=== PATIENT | male | born 1970 | race Caucasian/White ===

== ENCOUNTER 2022-02-07 12:50 | Inpatient (IN) ==
[2022-02-07] MEDS ORDERED: NS 0.9% 1000 ml BAG 1,000 ML IV ONE (14:41)
[2022-02-07 15:22] LABS: ABS Eosinophils 0.2 10^3/ul (0-0.6); ABS Lymphocytes 1.2 10^3/ul (1.0-4.8); ABS Monocytes 0.9 10^3/ul (0-0.8); ABS Neutrophils 3.2 10^3/ul (1.5-7.7); Eosinophil % 2.7 %; Hematocrit 21 % (42-52); Hemoglobin 6.9 g/dL (14.0-18.0); Mean Corpuscular HGB Conc 33 g/dL (31-36); Mean Corpuscular Hemoglobin 33 pg (27-31); Mean Corpuscular Volume 99 fL (80-94); Mean Platelet Volume 8.7 fL (7.4-10.4); Nucleated Red Blood Cells % 0.2; Platelet Count 215 10^3/uL (150-450); Red Blood Count 2.12 10^6 /uL (4.18-5.48); Red Cell Distribution Width 14 % (10-15); White Blood Count 5.5 10^3/uL (3.5-10.8)
[2022-02-07 15:29] LABS: INR 1.15 (0.86-1.15)
[2022-02-07] MEDS ORDERED: Pantoprazole 80 mg in NS BAG 80 MG/250 ML BAG IV ONE (15:37)
[2022-02-07] MEDS ORDERED: Pantoprazole VIAL 40 MG VIAL IV ONE (15:49)
[2022-02-07] MEDS ORDERED: Pantoprazole 80 mg in NS BAG 80 MG/250 ML BAG IV SCH (16:00)
[2022-02-07 16:23] LABS: Albumin 3.6 g/dL (3.2-5.2); Albumin/Globulin Ratio 1.8 (1-3); Calcium 8.3 mg/dL (8.6-10.3); Total Bilirubin 0.4 mg/dL (0.2-1.0); Total Protein 5.6 g/dL (6.4-8.9); eGFR CKD-EPI 107.1 (>60)
[2022-02-07] MEDS ORDERED: Lorazepam PYXIS KEY PRN (17:00)
[2022-02-07] MEDS ORDERED: NS 0.9% 1000 ml BAG 1,000 ML IV SCH (17:00)
[2022-02-07] MEDS ORDERED: LORazepam 2 mg VIAL 1 ml IV PUSH PRN (17:00)
[2022-02-07] MEDS ORDERED: Ondansetron 4 mg VIAL 2 MG/ML 2 ml VIAL IV PRN (17:02)
[2022-02-07] MEDS: Pantoprazole 80 mg IN NS 80 MG/250 ML BAG IV SCH (17:05)
[2022-02-07 19:55] LABS: High Sensitivity Troponin 3 Hr 4 pg/mL (<20)
[2022-02-08] MEDS: Pantoprazole 80 mg IN NS 80 MG/250 ML BAG IV SCH ×3 (02:52→23:42)
[2022-02-08 04:39] LABS: Hematocrit 23 % (42-52); Hemoglobin 7.5 g/dL (14.0-18.0); Hemoglobin 7.6 g/dL (14.0-18.0); Mean Corpuscular HGB Conc 33 g/dL (31-36); Mean Corpuscular Hemoglobin 31 pg (27-31); Mean Corpuscular Volume 93 fL (80-94); Mean Platelet Volume 8.3 fL (7.4-10.4); Platelet Count 203 10^3/uL (150-450); Red Blood Count 2.49 10^6 /uL (4.18-5.48); Red Cell Distribution Width 19 % (10-15); White Blood Count 5.2 10^3/uL (3.5-10.8)
[2022-02-08 05:19] LABS: Calcium 7.7 mg/dL (8.6-10.3); Potassium 3.5 mmol/L (3.5-5.0); eGFR CKD-EPI 113.2 (>60)
[2022-02-08] MEDS ORDERED: Propofol 10 MG/ML 20 ML BTL ONE (12:39)
[2022-02-08] MEDS ORDERED: fentaNYL 100 mcg/2 ml 50 MCG/ML VIAL ONE (12:42)
[2022-02-08] MEDS ORDERED: Midazolam 2 mg/2 ml VIAL 1 mg/ml 2 ml VIAL (2 mg) ONE (13:03)
[2022-02-08] MEDS ORDERED: Ketamine HCL 50 mg/ml 10 ml VIAL (500 MG) ONE (13:06)
[2022-02-08] MEDS ORDERED: Metoclopramide 5 MG/ML VIAL (10 mg) ONE (13:06)
[2022-02-08 21:07] LABS: Hematocrit 25 % (42-52); Hemoglobin 8.4 g/dL (14.0-18.0)
[2022-02-09 06:39] LABS: Hematocrit 29 % (42-52); Hemoglobin 9.8 g/dL (14.0-18.0); Mean Corpuscular HGB Conc 33 g/dL (31-36); Mean Corpuscular Hemoglobin 31 pg (27-31); Mean Corpuscular Volume 92 fL (80-94); Mean Platelet Volume 8.4 fL (7.4-10.4); Platelet Count 284 10^3/uL (150-450); Red Blood Count 3.19 10^6 /uL (4.18-5.48); Red Cell Distribution Width 21 % (10-15); White Blood Count 6.1 10^3/uL (3.5-10.8)
[2022-02-09 08:03] VITALS: BP 122/68
== END 2022-02-09 09:15 | disposition home or self-care (01) | DRG 241 ==
LOC: ED 12:50 → EDHOLD 17:20 → MEDTELE 17:50
PROVIDERS: ADMIT Hospitalist; ATTEND Hospitalist
PROC: O.GIEGD (2022-02-08 13:40)